=== PATIENT | female | born 1950 | race Caucasian/White ===

== ENCOUNTER 2023-02-20 11:05 | Inpatient (IN) ==
[2023-02-20] MEDS ORDERED: ASPIRIN 81 MG TAB.CHEW CHEWED ONE (11:22)
[2023-02-20] MEDS ORDERED: FUROSEMIDE 40 MG/4 ML VIAL IV ONE ×3 (11:22→17:33)
[2023-02-20] MEDS ORDERED: cefTRIAXone 1 GM VIAL IV ONE (12:26)
[2023-02-20] MEDS ORDERED: AZITHROMYCIN 500 MG in DEXTROSE 5% IN WATER 250 ML IV ONE (12:31)
[2023-02-20 12:33] LABS: Basophils # (Auto) 0.03 K/mcL (0.00-0.30); Basophils % (Auto) 0.3 % (0.0-2.0); Eosinophils # (Auto) 0.25 K/mcL (0.00-0.70); Eosinophils % (Auto) 2.6 % (0.0-7.0); Hematocrit 29.2 % (34.1-44.9); Lymphocytes # (Auto) 1.22 K/mcL (1.50-4.80); Lymphocytes % (Auto) 12.9 % (15.5-49.0); Mean Cell Volume 82.3 fL (80.0-100.0); Mean Corpuscular HGB Conc 27.4 g/dL (31.0-36.0); Mean Platelet Volume 9.1 fL (8.8-12.5); Monocytes # (Auto) 0.72 K/mcL (0.10-0.90); Monocytes % (Auto) 7.6 % (1.0-12.0); Neutrophils % (Auto) 75.3 % (38.0-78.0); Platelet Count 289 K/mcL (140-440); RBC 3.55 M/mcL (3.59-5.38); Red Cell Distribution Width 18.6 % (11.5-14.5); WBC 9.5 K/mcL (4.5-11.0)
[2023-02-20 12:44] LABS: POC Calcium, Ionized 1.16 (1.16-1.32); POC Creatinine 0.8 (0.6-1.2); POC Potassium 3.3 (3.3-5.1)
[2023-02-20 14:17] LABS: ALT/SGPT 16 U/L (<40); AST/SGOT 22 U/L (<32); Albumin 3.9 gm/dL (3.2-5.2); Alkaline Phosphatase 123 U/L (39-117); Bilirubin,Direct < 0.2 mg/dL (0-0.3); Bilirubin,Total 0.5 mg/dL (0.1-1.0); proBNP 994.6 pg/mL (<125.0)
[2023-02-20] MEDS ORDERED: HYDROcodone/APAP 5/325MG TABLET PO ONE (15:44)
[2023-02-20] MEDS ORDERED: POTASSIUM CHLORIDE 20 MEQ TABLET PO PRN (16:13)
[2023-02-20] MEDS ORDERED: ONDANSETRON 4 MG/2 ML VIAL IV PRN (16:13)
[2023-02-20] MEDS ORDERED: IPRATROPIUM/ALBUTEROL 3 ML AMPUL.NEB NEB PRN (16:13)
[2023-02-20] MEDS ORDERED: POLYETHYLENE GLYCOL 3350 17 GM PACKET PO PRN (16:13)
[2023-02-20] MEDS ORDERED: MAGNESIUM SULFATE 2 GM/50 ML BAG IV PRN (16:13)
[2023-02-20] MEDS ORDERED: SENNOSIDES 1 TABLET PO PRN (16:13)
[2023-02-20] MEDS ORDERED: POTASSIUM CHLORIDE 40 MEQ in DEXTROSE 5% IN WATER 500 ML IV PRN (16:13)
[2023-02-20] MEDS ORDERED: LABETALOL 5 MG/ML ML IV PRN (16:53)
[2023-02-20] MEDS ORDERED: FUROSEMIDE 40 MG/4 ML VIAL IV SCH (17:25)
[2023-02-20] MEDS: POTASSIUM CHLORIDE 20 MEQ TABLET PO PRN (17:31)
[2023-02-20] MEDS: DOCUSATE SODIUM 100 MG CAPSULE PO SCH (20:19)
[2023-02-20] MEDS: GABAPENTIN 300 MG CAPSULE PO SCH (20:27)
[2023-02-20] MEDS: ATORVASTATIN 40 MG TABLET PO SCH (20:27)
[2023-02-20] MEDS: AMITRIPTYLINE 25 MG TABLET PO SCH (20:27)
[2023-02-20] MEDS: NYSTATIN POWDER BOTTLE 15GM TOPICAL PRN (20:28)
[2023-02-20] MEDS ORDERED: diphenhydrAMINE 25 MG CAPSULE PO PRN (21:00)
[2023-02-21] MEDS: HYDROcodone/APAP 10/325MG TABLET PO PRN ×3 (02:08→21:40)
[2023-02-21 07:33] LABS: Basophils # (Auto) 0.02 K/mcL (0.00-0.30); Basophils % (Auto) 0.2 % (0.0-2.0); Eosinophils # (Auto) 0.27 K/mcL (0.00-0.70); Eosinophils % (Auto) 3.3 % (0.0-7.0); Hematocrit 28.6 % (34.1-44.9); Lymphocytes # (Auto) 1.25 K/mcL (1.50-4.80); Lymphocytes % (Auto) 15.3 % (15.5-49.0); Mean Cell Volume 81.3 fL (80.0-100.0); Mean Platelet Volume 9.1 fL (8.8-12.5); Monocytes # (Auto) 0.72 K/mcL (0.10-0.90); Monocytes % (Auto) 8.8 % (1.0-12.0); Neutrophils % (Auto) 71.8 % (38.0-78.0); Platelet Count 275 K/mcL (140-440); RBC 3.52 M/mcL (3.59-5.38); Red Cell Distribution Width 18.7 % (11.5-14.5); WBC 8.2 K/mcL (4.5-11.0)
[2023-02-21] MEDS ORDERED: BUMETANIDE 1 MG/4 ML VIAL IV SCH (08:00)
[2023-02-21] MEDS: METOPROLOL SUCCINATE 50 MG TAB.XL.24H PO SCH (08:09)
[2023-02-21] MEDS: GABAPENTIN 300 MG CAPSULE PO SCH ×2 (08:09→20:50)
[2023-02-21] MEDS: SERTRALINE 50 MG TABLET PO SCH (08:09)
[2023-02-21] MEDS: OMEPRAZOLE 20 MG CAPSULE PO SCH (08:11)
[2023-02-21] MEDS: LEVOTHYROXINE 75 MCG TABLET PO SCH (08:11)
[2023-02-21] MEDS: ALLOPURINOL 100 MG TABLET PO SCH (08:11)
[2023-02-21] MEDS: ENOXAPARIN 40 MG/0.4 ML SYRINGE SQ SCH (08:12)
[2023-02-21] MEDS: BUMETANIDE 1 MG/4 ML VIAL IV SCH ×2 (08:12→17:17)
[2023-02-21 08:13] LABS: ALT/SGPT 14 U/L (<40); AST/SGOT 29 U/L (<32); Albumin 3.6 gm/dL (3.2-5.2); Albumin/Globulin Ratio 1.3 (1.0-2.3); Alkaline Phosphatase 116 U/L (39-117); Bilirubin,Direct 0.2 mg/dL (<0.3); Bilirubin,Total 0.8 mg/dL (0.1-1.0); Blood Urea Nitrogen 10 mg/dL (8-23); Calcium 8.6 mg/dL (8.6-10.4); Carbon Dioxide 28 mmol/L (22-30); Chloride 102 mmol/L (96-108); Globulin 2.8 gm/dL (2.2-3.7); Glomerular Filtration Rate 56; Glucose 115 mg/dL (70-105); Lactate Dehydrogenase 230 U/L (135-225); Phosphorous 3.2 mg/dL (2.5-4.5); Triglycerides 99 mg/dL (<150); Uric Acid 6.3 mg/dL (2.5-8.0)
[2023-02-21] MEDS: Linaclotide [Linzess] 145 mcg capsule PO SCH (08:13)
[2023-02-21] MEDS: DOCUSATE SODIUM 100 MG CAPSULE PO SCH ×2 (08:13→20:49)
[2023-02-21 08:37] LABS: Retic Absolute 0.09 M/mcL (0.02-0.10)
[2023-02-21 09:02] LABS: Ferritin 14.7 ng/mL (30.0-400.0)
[2023-02-21] MEDS ORDERED: IRON POLYSACCHARIDE COMPLEX 150 MG CAPSULE PO SCH (09:05)
[2023-02-21] MEDS ORDERED: CYANOCOBALAMIN 1,000 MCG/ML VIAL IM ONE (10:00)
[2023-02-21] MEDS: ATORVASTATIN 40 MG TABLET PO SCH (20:49)
[2023-02-21] MEDS: AMITRIPTYLINE 25 MG TABLET PO SCH (20:49)
[2023-02-21] MEDS: IRON POLYSACCHARIDE COMPLEX 150 MG CAPSULE PO SCH (20:50)
[2023-02-22 06:45] LABS: Hematocrit 33.8 % (34.1-44.9); Hemoglobin 8.7 g/dL (11.2-15.7)
[2023-02-22 07:08] LABS: ALT/SGPT 20 U/L (<40); AST/SGOT 69 U/L (<32); Albumin 3.5 gm/dL (3.2-5.2); Albumin/Globulin Ratio 1.1 (1.0-2.3); Alkaline Phosphatase 116 U/L (39-117); Bilirubin,Direct < 0.2 mg/dL (0-0.3); Bilirubin,Total 0.7 mg/dL (0.1-1.0); Blood Urea Nitrogen 14 mg/dL (8-23); Calcium 8.8 mg/dL (8.6-10.4); Carbon Dioxide 28 mmol/L (22-30); Chloride 98 mmol/L (96-108); Globulin 3.1 gm/dL (2.2-3.7); Glomerular Filtration Rate 56; Glucose 120 mg/dL (70-105); Lactate Dehydrogenase 294 U/L (135-225); Phosphorous 3.5 mg/dL (2.5-4.5); Triglycerides 116 mg/dL (<150); Uric Acid 6.6 mg/dL (2.5-8.0)
[2023-02-22] MEDS: METOPROLOL SUCCINATE 50 MG TAB.XL.24H PO SCH (07:59)
[2023-02-22] MEDS: ENOXAPARIN 40 MG/0.4 ML SYRINGE SQ SCH (07:59)
[2023-02-22] MEDS: POTASSIUM CHLORIDE 20 MEQ TABLET PO PRN (08:00)
[2023-02-22] MEDS: GABAPENTIN 300 MG CAPSULE PO SCH ×2 (08:00→20:51)
[2023-02-22] MEDS: OMEPRAZOLE 20 MG CAPSULE PO SCH (08:00)
[2023-02-22] MEDS: LEVOTHYROXINE 75 MCG TABLET PO SCH (08:00)
[2023-02-22] MEDS: SERTRALINE 50 MG TABLET PO SCH (08:00)
[2023-02-22] MEDS: ALLOPURINOL 100 MG TABLET PO SCH (08:01)
[2023-02-22] MEDS: DOCUSATE SODIUM 100 MG CAPSULE PO SCH ×3 (08:08→20:59)
[2023-02-22] MEDS: HYDROcodone/APAP 10/325MG TABLET PO PRN ×2 (09:03→20:53)
[2023-02-22] MEDS: Linaclotide [Linzess] 145 mcg capsule PO SCH (09:04)
[2023-02-22] MEDS: CYANOCOBALAMIN (VITAMIN B-12) 500 MCG TABLET PO SCH (09:04)
[2023-02-22] MEDS: BUMETANIDE 1 MG/4 ML VIAL IV SCH ×2 (11:08→16:59)
[2023-02-22] MEDS: IRON POLYSACCHARIDE COMPLEX 150 MG CAPSULE PO SCH (12:55)
[2023-02-22] MEDS: ACETAMINOPHEN 325 MG TABLET PO PRN (15:23)
[2023-02-22] MEDS: ATORVASTATIN 40 MG TABLET PO SCH (20:50)
[2023-02-22] MEDS: AMITRIPTYLINE 25 MG TABLET PO SCH (20:52)
[2023-02-22] MEDS: NYSTATIN POWDER BOTTLE 15GM TOPICAL PRN (20:55)
[2023-02-23] MEDS: IRON POLYSACCHARIDE COMPLEX 150 MG CAPSULE PO SCH ×2 (04:23→08:03)
[2023-02-23] MEDS: ACETAMINOPHEN 325 MG TABLET PO PRN ×2 (04:32→13:32)
[2023-02-23] MEDS: HYDROcodone/APAP 10/325MG TABLET PO PRN ×2 (04:32→13:32)
[2023-02-23] MEDS: OMEPRAZOLE 20 MG CAPSULE PO SCH (06:52)
[2023-02-23] MEDS: LEVOTHYROXINE 75 MCG TABLET PO SCH (06:52)
[2023-02-23 07:25] LABS: Blood Urea Nitrogen 23 mg/dL (8-23); Calcium 8.6 mg/dL (8.6-10.4); Carbon Dioxide 31 mmol/L (22-30); Chloride 97 mmol/L (96-108); Glomerular Filtration Rate 56; Glucose 140 mg/dL (70-105)
[2023-02-23] MEDS: METOPROLOL SUCCINATE 50 MG TAB.XL.24H PO SCH (08:04)
[2023-02-23] MEDS: CYANOCOBALAMIN (VITAMIN B-12) 500 MCG TABLET PO SCH (08:04)
[2023-02-23] MEDS: ALLOPURINOL 100 MG TABLET PO SCH (08:04)
[2023-02-23] MEDS: DOCUSATE SODIUM 100 MG CAPSULE PO SCH (08:04)
[2023-02-23] MEDS ORDERED: acetaZOLAMIDE SOD 500 MG VIAL IV ONE (08:05)
[2023-02-23] MEDS: GABAPENTIN 300 MG CAPSULE PO SCH (08:06)
[2023-02-23] MEDS: SERTRALINE 50 MG TABLET PO SCH (08:06)
[2023-02-23] MEDS: ENOXAPARIN 40 MG/0.4 ML SYRINGE SQ SCH (08:07)
[2023-02-23] MEDS: Linaclotide [Linzess] 145 mcg capsule PO SCH (08:08)
[2023-02-23] MEDS ORDERED: ENOXAPARIN 60 MG/0.6 ML SYRINGE SQ ONE (15:46)
[2023-02-28] MEDS ORDERED: CYANOCOBALAMIN 1,000 MCG/ML VIAL SQ SCH (09:00)
== END 2023-02-23 16:58 | disposition home or self-care (01) | DRG 291 ==
LOC: ED 11:05 → ICU 16:10
PROVIDERS: ADMIT Internal Medicine; ATTEND Internal Medicine